=== PATIENT | male | born 1985 | race Caucasian/White ===

== ENCOUNTER 2021-09-06 07:05 | Day surgery (SDC) | payer OTHER ==
[~2021-09-06 07:05] MED LIST: Lactated Ringers 1,000 ML IV SCH; Lidocaine 1%/Sod Bicarbonate in NS 8.4% 1 ML Syringe IDERM PRN; Ondansetron 4 MG/2 ML SDV IVPUSH PRN; Sodium Chloride 0.9% 10 ML Syringe FLUSH PRN; Sodium Chloride 0.9% 10 ML Syringe FLUSH SCH; diphenhydrAMINE 50 MG/ML SDV IVPUSH PRN; fentaNYL 100 MCG/2 ML SDV IVPUSH PRN
[2021-09-06] MEDS ORDERED: Propofol 200 MG/20 ML SDV ONE ×2 (07:29→08:31)
[2021-09-06] MEDS ORDERED: Midazolam 1 MG/ML 2 ML SDV ONE ×3 (07:29→08:31)
[2021-09-06] MEDS ORDERED: fentaNYL 100 MCG/2 ML SDV ONE ×2 (07:29→08:31)
[2021-09-06] MEDS ORDERED: Famotidine 20 MG/2 ML SDV IVPUSH ONE (07:45)
[2021-09-06] MEDS ORDERED: Citric Acid/Sodium Citrate Solution 30 ML Cup PO ONE (08:00)
== END 2021-09-06 09:01 | disposition home or self-care (01) ==
LOC: JD.SDS 07:05
PROVIDERS: ATTEND Surgery
DX: K29.50 Unspecified chronic gastritis without bleeding (principal); K31.7 Polyp of stomach and duodenum; K20.0 Eosinophilic esophagitis; F17.210 Nicotine dependence, cigarettes, uncomplicated; E66.01 Morbid (severe) obesity due to excess calories; I10 Essential (primary) hypertension; K21.9 Gastro-esophageal reflux disease without esophagitis; Z98.890 Other specified postprocedural states; Z79.899 Other long term (current) drug therapy; Z88.0 Allergy status to penicillin; Z68.41 Body mass index [BMI] 40.0-44.9, adult
CPT/HCPCS: 43239; A9270; J2250; J2704; J3010; J3490; J7120; 00731; 88305